=== PATIENT | male | born 1980 | race Caucasian/White ===

== ENCOUNTER 2018-07-29 09:07 | Emergency (ER) | payer BC ==
--- NOTE | 2018-07-29 09:52 | UC ---
Ear Complaint HPI - HPI Summary HPI Summary: 37 yo male presents with right ear feeling clogged since early this morning. He tells me that he has a history of cerumen impaction and thinks this is happening again. He has his ears flushed in the past with good relief. Denies fever, chills, sinus symptoms, sore throat, or cough. - History of Current Complaint Chief Complaint: UCEar Stated Complaint: PLUGGED EAR Time Seen by Provider: 07/29/18 09:52 Hx Obtained From: Patient Onset/Duration: Sudden Onset Severity Initially: Mild Severity Currently: Mild Pain Intensity: 3 Pain Scale Used: 0-10 Numeric - Allergies/Home Medications Allergies/Adverse Reactions: Allergies Allergy/AdvReac Type Severity Reaction Status Date / Time sulfamethoxazole Allergy Hives Verified 07/29/18 09:29 [From Bactrim] trimethoprim [From Bactrim] Allergy Hives Verified 07/29/18 09:29 Home Medications: Home Medications Aspirin/Acetaminophen/Caffeine [Excedrin Migraine Caplet] 1 tab PO ONCE PRN [History Confirmed 07/29/18] PMH/Surg Hx/FS Hx/Imm Hx - Additional Past Medical History Additional PMH: None - Surgical History Surgical History: Yes Surgery Procedure, Year, and Place: skin infection. blood clot under left arm. jaw surgery - Family History Known Family History: Positive: None - Social History Occupation: Employed Full-time Lives: With Family Alcohol Use: Occasionally Substance Use Type: None Smoking Status (MU): Never Smoked Tobacco Review of Systems All Other Systems Reviewed And Are Negative: Yes Constitutional: Positive: Negative Skin: Positive: Negative Eyes: Positive: Negative ENT: Positive: Ear Ache Respiratory: Positive: Negative Cardiovascular: Positive: Negative Gastrointestinal: Positive: Negative Neurological: Positive: Negative Psychological: Positive: Negative Physical Exam - Summary Physical Exam Summary: GENERAL: NAD. WDWN. No pain distress. SKIN: No rashes, sores, lesions, or open wounds. HEENT: Head: AT/NC Eyes: EOM intact. Conjunctiva clear without inflammation or discharge. Ears: Hearing grossly normal. B/L TM occluded by yellow/brown cerumen. S/P removal - TMs WNL and intact. No canal edema or drainage. Nose: Nasal mucosa pink and moist. NTTP maxillary and frontal sinus. Throat: Posterior oropharynx without exudates, erythema, or tonsillar enlargement. Uvula midline. NECK: Supple. Nontender. No lymphadenopathy. CHEST: CTAB. No r/r/w. No accessory muscle use. Breathing comfortably and in no distress. CV: RRR. Without m/r/g. Pulses intact. NEURO: Alert. PSYCH: Age appropriate behavior. Triage Information Reviewed: Yes Vital Signs: Initial Vital Signs Temp 96.7 F 07/29/18 09:26 Pulse 76 07/29/18 09:26 Resp 18 07/29/18 09:26 BP 144/91 07/29/18 09:26 Pulse Ox 99 07/29/18 09:26 Vital Signs Reviewed: Yes Ear Complaint Course/Dx - Course Course Of Treatment: Cerumen impaction b/l with successful disimpaction via irrigation. - Differential Dx/Diagnosis Provider Diagnosis: Cerumen impaction Discharge - Sign-Out/Discharge Documenting (check all that apply): Patient Departure All imaging exams completed and their final reports reviewed: No Studies - Discharge Plan Condition: Stable Disposition: HOME Patient Education Materials: Cerumen Impaction (ED) Referrals: No Primary Care Phys,NOPCP [Primary Care Provider] - Additional Instructions: If you develop a fever, shortness of breath, chest pain, new or worsening symptoms - please call your PCP or go to the ED. Your blood pressure was high at todays visit. Please see your primary provider within 4 weeks for recheck and re-evaluation. - Billing Disposition and Condition Condition: STABLE Disposition: Home
== END 2018-07-29 10:27 | disposition home or self-care (01) ==
LOC: UCEAST 09:07
DX: H61.23 Impacted cerumen, bilateral (principal); Z88.2 Allergy status to sulfonamides
CPT/HCPCS: 99203; G0463

== ENCOUNTER 2018-09-06 13:37 | Emergency (ER) | payer BC ==
[2018-09-06 14:29] LABS: Influenza A Molecular NEGATIVE (Negative); Influenza B Molecular NEGATIVE (Negative)
--- NOTE | 2018-09-06 14:32 | UC ---
FLU HPI - HPI Summary HPI Summary: has had sudden onset bodyaches, fever, chills for 3 days, had influenza vacc 1 mo ago - History of Current Complaint Chief Complaint: UCGeneralIllness Stated Complaint: FEVER CHILLS Time Seen by Provider: 09/06/18 13:49 Hx Obtained From: Patient Onset/Duration: Sudden Onset Pain Intensity: 0 Associated Signs & Symptoms: Positive: Fever - Allergy/Home Medications Allergies/Adverse Reactions: Allergies Allergy/AdvReac Type Severity Reaction Status Date / Time sulfamethoxazole Allergy Hives Verified 09/06/18 13:46 [From Bactrim] trimethoprim [From Bactrim] Allergy Hives Verified 09/06/18 13:46 Home Medications: Home Medications Ibuprofen [Advil] 600 mg PO ONCE PRN 09/06/18 [History Confirmed 09/06/18] PMH/Surg Hx/FS Hx/Imm Hx Previously Healthy: Yes - Surgical History Surgical History: Yes Surgery Procedure, Year, and Place: blood clot under left arm. jaw surgery - Family History Known Family History: Positive: None - Social History Occupation: Employed Full-time Lives: With Family Alcohol Use: Rare Substance Use Type: None Smoking Status (MU): Never Smoked Tobacco Review of Systems All Other Systems Reviewed And Are Negative: Yes Constitutional: Positive: Chills, Fatigue Skin: Positive: Negative ENT: Negative: Sore Throat, Ear Ache Respiratory: Positive: Negative Cardiovascular: Positive: Negative Gastrointestinal: Positive: Negative Musculoskeletal: Positive: Other: - body aches Neurological: Positive: Headache - vague headache Physical Exam Triage Information Reviewed: Yes Appearance: Well-Appearing, No Pain Distress, Well-Nourished Vital Signs: Initial Vital Signs Temp 98.7 F 09/06/18 13:41 Pulse 85 09/06/18 13:41 Resp 16 09/06/18 13:41 BP 142/90 09/06/18 13:41 Pulse Ox 99 09/06/18 13:41 Vital Signs Reviewed: Yes Eyes: Positive: Conjunctiva Clear ENT: Positive: Pharynx normal, TMs normal. Negative: Nasal congestion, Sinus tenderness Respiratory Exam: Normal Cardiovascular Exam: Normal Neurological Exam: Normal Psychological Exam: Normal Skin Exam: Normal Flu Course/Dx - Differential Dx/Diagnosis Differential Diagnosis/HQI/PQRI: Influenza, Upper Respiratory Infection Provider Diagnosis: Upper respiratory infection Discharge - Sign-Out/Discharge Documenting (check all that apply): Patient Departure All imaging exams completed and their final reports reviewed: No Studies - Discharge Plan Condition: Stable Disposition: HOME Prescriptions: Azithromycin TAB* [Zithromax TAB (Z-IMTIAZ) 250 mg #6 tabs] 2 tab PO .TODAY, THEN 1 DAILY #1 imtiaz Patient Education Materials: Upper Respiratory Infection (ED) Referrals: Minesh Guerin MD [Primary Care Provider] - 2 Days (for blood pressure recheck) Additional Instructions: drink plenty of fluids and use ibuprofen as directed Start zithromax antibiotic if no better 48h - Billing Disposition and Condition Condition: STABLE Disposition: Home
== END 2018-09-06 14:58 | disposition home or self-care (01) ==
LOC: UCEAST 13:37
DX: J06.9 Acute upper respiratory infection, unspecified (principal); Z88.2 Allergy status to sulfonamides
CPT/HCPCS: 99212; G0463